=== PATIENT | male | born 1985 | race Caucasian/White ===

== ENCOUNTER → 2017-07-14 | Emergency (ER) | payer OTHER ==
[~2017-07-14] VITALS: Ht 190.5 cm; Wt 111.1 kg
[~2017-07-14] MED LIST: CELEBREX200MG PO; KETO10TA2 PO; MEDROLPACK PO; NORFLEX100MG PO; SKELAXIN800 MG PO
== END | disposition home or self-care (01) ==
LOC: ER 06:02
DX: M54.5 Low back pain (principal)